=== PATIENT | male | born 1980 | race Two or more races ===

== ENCOUNTER 2024-11-05 16:46 | Inpatient (IN) | payer MEDICAID, OTHER ==
[~2024-11-05] VITALS: Ht 172.7 cm; Wt 102.3 kg
[2024-11-05] MEDS: KETOROLAC TROMETH 60MG/2ML VIAL IM ONE (17:00)
--- NOTE | 2024-11-05 17:04 | ED.PDOC ---
Psychiatric HPI Comments This is a 44 year old male history of depression BIBA presenting to the ED with chief complaint of chest pain. Patient reports that he has been experiencing intermittent sharp retrosternal and left sided chest pain with associated dizziness, fatigue, and left arm tingling for the past 3 weeks. Patient relays that he has history of depression and is currently on Zoloft. Patient states his symptoms have relieved slightly since onset. Patient denies any SOB, headache, fever, chills, or SI. Chief Complaint: Anxiety Time Seen by MD: 17:02 Primary Care Provider: denies Reviewed Notes: Nurses Notes, Machining Technician Notes, Medications, Allergies Information Source: Patient, Emergency Med Personnel Mode of Arrival: Ambulatory Severity: Able to Care for Self, Able to Control Self Severity of Pain: Moderate Severity of Mental Status: Moderate Severity of Symptoms: Moderate Timing: Weeks Duration: Intermittent Presents with: Anxiety Past Medical History PAST MEDICAL HISTORY: Anxiety, Depression Surgical History: Hernia Repair Family History Family History: Reviewed,noncontributory to illness, No family hx of HTN Social History Smoker: Quit Less Than 1 Year, Cigarettes Alcohol: Denies ETOH Use Drugs: Marijuana Lives In: Home Constitutional: reports: fatigue; denies: chills, diaphoresis, fever, malaise, sweats, weakness, others EENTM: denies: blurred vision, double vision, ear bleeding, ear discharge, ear drainage, ear pain, ear ringing, eye pain, eye redness, hearing loss, mouth pain, mouth swelling, nasal discharge, nose bleeding, nose congestion, nose pain, photophobia, tearing, throat pain, throat swelling, voice changes, others Respiratory: denies: cough, hemoptysis, orthopnea, SOB at rest, shortness of breath, SOB with excertion, stridor, wheezing, others Cardiovascular: reports: chest pain, left arm pain; denies: dizzy spells, diaphoresis, Dyspnea on exertion, edema, irregular heart beat, lightheadedness, palpitations, PND, syncope, others Gastrointestinal: denies: abdomen distended, abdominal pain, blood streaked bowels, constipated, diarrhea, dysphagia, difficulty swallowing, hematemesis, melena, nausea, poor appetite, poor fluid intake, rectal bleeding, rectal pain, vomiting, others Genitourinary: denies: burning, dysuria, flank pain, frequency, hematuria, incontinence, penile discharge, penile sore, pain, testicle pain, testicle swelling, urgency, others Neurological: reports: dizziness; denies: fainting, headache, left sided numbness, left sided weakness, numbness, paresthesia, pre-existing deficit, right sided numbness, right sided weakness, seizure, speech problems, tingling, tremors, weakness, others Musculoskeletal: denies: back pain, gout, joint pain, joint swelling, muscle pain, muscle stiffness, neck pain, others Integumetry: denies: bruises, change in color, change in hair/nails, dryness, laceration, lesions, lumps, rash, wounds, others Allergic/Immunocompromised: denies: Difficulty Healing, Frequent Infections, Hives, Itching, others Hematologic/Lymphatic: denies: anemia, blood clots, easy bleeding, easy bruising, swollen glands, others Endocrine: denies: excessive hunger, excessive sweating, excessive thirst, excessive urination, flushing, intolerance to cold, intolerance to heat, unexplained weight gain, unexplained weight loss, others Psychiatric: reports: anxiety; denies: bipolar disorder, depression, hopeless, panic disorder, schizophrenia, sleepless, suicidal, others All Other Systems: Reviewed and Negative Physical Exam General Appearance: Mild Distress HEENT: Other (Pupils and face symmetric. Moist mucous membranes.) Neck: Full Range of Motion, Normal Inspection Respiratory: Chest Non-Tender, Lungs Clear, No Accessory Muscle Use, No Respiratory Distress, Normal Breath Sounds Cardiovascular: No Edema, No JVD, Tachycardia Breast Exam: Deferred Gastrointestinal: Non Tender, Soft Genitalia: Deferred Pelvic: Deferred Rectal: Deferred Extremities: Normal inspection, Normal range of motion, Non-tender, No pedal edema Neurologic: Alert (Oriented x4), Other (Anxious. Ambulatory.) Cerebellar Function: NOT DONE Reflexes: NOT DONE Skin: Dry, Normal Color, Warm Lymphatic: NOT DONE EKG EKG : Comments Sinus tach, rate 109, normal intervals, borderline left axis deviation, normal QRS, nonspecific T change. Was a procedure done? Was a procedure done?: No Psych Differential Dx Psych. Differential Dx: Anxiety OD Differential Dx: Alcohol Abuse, Substance Abuse Other Differentail Dx ACS, DC, arrhythmia, PE, among others X-Ray, Labs, Meds, VS Vital Signs Date Time Temp Pulse Resp B/P (MAP) Pulse Ox O2 Delivery O2 Flow Rate FiO2 11/05/24 19:17 79 18 98 Room Air 11/05/24 19:17 79 18 117/69 (85) 98 11/05/24 16:50 109 11/05/24 16:46 98.6 120 20 147/94 98 98.6 Lab Test 11/05/24 19:18 11/05/24 17:45 Range/Units Troponin I High Sensitivity Pending 64 *H </=54 ng/L White Blood Count 10.6 4.4-10.8 10^3/uL Red Blood Count 4.79 4.5-5.90 10^6/uL Hemoglobin 15.5 13.5-17.5 g/dL Hematocrit 43.2 41.0-53.0 % Mean Corpuscular Volume 90.2 80.0-100.0 fL Mean Corpuscular Hemoglobin 32.5 H 28.0-32.0 pg Mean Corpuscular Hemoglobin Concent 36.0 32.0-36.0 g/dL Red Cell Distribution Width 13.1 11.8-14.3 % Platelet Count 222 140-450 10^3/uL Mean Platelet Volume 6.8 L 6.9-10.8 fL Neutrophils (%) (Auto) 85.1 H 37.0-80.0 % Lymphocytes (%) (Auto) 8.8 L 10.0-50.0 % Monocytes (%) (Auto) 5.5 0.0-12.0 % Eosinophils (%) (Auto) 0.2 0.0-7.0 % Basophils (%) (Auto) 0.4 0.0-2.0 % Neutrophils # (Auto) 9.0 H 1.6-8.6 10 ^3/uL Lymphocytes # (Auto) 0.9 0.4-5.4 10 ^3/uL Monocytes # (Auto) 0.6 0-1.3 10 ^3/uL Eosinophils # (Auto) 0 0-0.8 10 ^3/uL Basophils # (Auto) 0 0-0.2 10 ^3/uL Nucleated Red Blood Cells 0.0 % D-Dimer, Quantitative < 0.19 0.0-0.49 mg/L FEU Sodium Level 140 136-145 mmol/L Potassium Level 4.0 3.5-5.1 mmol/L Chloride Level 103 98-107 mmol/L Carbon Dioxide Level 28 20-31 mmol/L Anion Gap 9 5-15 Blood Urea Nitrogen 19 9-23 mg/dL Creatinine 1.22 0.700-1.30 mg/dL Glomerular Filtration Rate Calc 75 >90 mL/min BUN/Creatinine Ratio 15.6 10.0-20.0 Serum Glucose 79 74-106 mg/dL Calcium Level 9.8 8.7-10.4 mg/dL B-Type Natriuretic Peptide 17.71 0-100 pg/mL Current Medications Medications (Trade) Dose Ordered Sig/Rashawn Route Start Time Stop Time Status Last Admin Ketorolac Tromethamine (Toradol Injection) 60 mg ONCE ONCE IM 11/05/24 17:00 11/05/24 17:02 DC 11/05/24 17:00 Lorazepam (Ativan Tablet) 1 mg ONCE ONCE PO 11/05/24 17:00 11/05/24 17:02 DC 11/05/24 18:46 PROCEDURE(s): CXRP - CHEST PORTABLE REASON: cp ORDER NUMBER(s): [id number], ACCESSION NUMBER(s): [id number] AP portable chest CLINICAL INDICATION: cp FINDINGS: Heart size is normal. No infiltrates or effusions. No bony thoracic abnormalities. IMPRESSION: 1. Normal chest x-ray. X-Ray, Labs, Meds, VS Comment 44-year-old male with a history of depression complaining of chest pain Vitals remarkable for initial heart rate 120, BP 147/94 Exam remarkable for anxiety and tachycardia Rhythm strip independently interpreted by me: Sinus tach, rate 109, no ectopy. Chest x-ray normal CBC, basic metabolic panel, BNP and D-dimer unremarkable. First troponin 64 Patient treated with the following in the ED: Toradol 60 mg IM, Ativan 1 mg p.o., aspirin 325 mg p.o., nitro bid 1/2 inch to chest wall On re-evaluation, pain has improved, patient is no longer tachycardic. Vitals were stable. Plan is to admit the patient for ongoing serial troponins and Cardiology evaluation. Time of 1ST Reevaluation: 18:01 Reevaluation 1ST: Improved Patient Education/Counseling: Diagnosis, Treatment Family Education/Counseling: No Family Present Departure 1 Departure Time of Disposition: 19:49 Impression: Primary Impression: Non-STEMI (non-ST elevated myocardial infarction) Disposition: 09 ADMITTED INPATIENT Admit to: Tele Condition: Guarded Critical Care Note Critical Care Time?: No Stability Stability form required: No Heart Score Heart Score: Heart Score Response (Comments) Value History Moderate Suspicious 1 EKG Repolarization Disturb 1 Age 45-64 1 Risk Factors 1 or 2 risk factors 1 Troponin 1-2 x's Normal limit 1 Total 5 I personally scribed for GT WILKES MD ([email or web address]) on 11/05/24 at 17:04. Electronically submitted by Ricki Rodriguez ([email or web address]). I personally scribed for GT WILKES MD ([email or web address]) on 11/05/24 at 18:08. Electronically submitted by Ricki Rodriguez ([email or web address]). GT WILKES MD Nov 05, 2024 17:04
--- NOTE | 2024-11-05 17:31 | DVH ---
AP portable chest CLINICAL INDICATION: cp FINDINGS: Heart size is normal. No infiltrates or effusions. No bony thoracic abnormalities. IMPRESSION: 1. Normal chest x-ray.
[2024-11-05 18:15] LABS: Chloride 103 mmol/L (98-107); Potassium 4.0 mmol/L (3.5-5.1); Sodium 140 mmol/L (136-145)
[2024-11-05 18:16] LABS: Anion Gap 9 (5-15); Calcium 9.8 mg/dL (8.7-10.4); Carbon Dioxide 28 mmol/L (20-31); Hematocrit 43.2 % (41.0-53.0); Hemoglobin 15.5 g/dL (13.5-17.5); Mean Corpuscular Hemoglobin 32.5 pg (28.0-32.0); Mean Corpuscular Volume 90.2 fL (80.0-100.0); Nucleated Red Blood Cells % 0.0 %
[2024-11-05 18:21] LABS: BUN/Creatinine Ratio 15.6 (10.0-20.0); Blood Urea Nitrogen 19 mg/dL (9-23); Glucose 79 mg/dL (74-106)
[2024-11-05] MEDS: LORazepam 0.5 MG TAB PO ONE (18:46)
[2024-11-05] MEDS ORDERED: NITROGLYCERIN 0.4 MG SL TAB SL PRN (20:00)
--- NOTE | 2024-11-05 21:26 | DVHHP2 ---
History of Present Illness Reason for Visit: Chest pain History of Present Illness 44-year-old male presents for evaluation of chest pain. Patient reports a three day history of intermittent substernal sharp chest pain that radiates to his left arm with associated dizziness. Currently denies any pain. No shortness a breath. Past Medical History Anxiety and depression Past Surgical History Hernia repair Family History Noncontributory Smoke: Quit ALCOHOL: none Drugs: Marijuana Review of Systems Review of Systems Review of systems are currently negative otherwise addressed in HPI. Allergies: Coded Allergies: NO KNOWN ALLERGIES (Unverified , 03/06/12) Medications Current Medications Medications Dose Ordered Sig/Rashawn Route Start Time Stop Time Status Last Admin Dose Admin Nitroglycerin 0.4 mg Q5MINP PRN SL 11/05/24 20:00 Morphine Sulfate 2 mg Q30M PRN IV 11/05/24 20:00 Exam Vital Signs Vital Signs Date Time Temp Pulse Resp B/P (MAP) Pulse Ox O2 Delivery O2 Flow Rate FiO2 11/05/24 19:17 79 18 98 Room Air 11/05/24 19:17 117/69 (85) 11/05/24 16:46 98.6 98.6 Exam Gen: 44-year-old male Skin: Warm, dry, normal color and texture, no rash. HEENT: Normocephalic atraumatic, mucous membranes moist and pink. Neck: Cervical and supraclavicular nodes normal without enlargement, trachea is midline, thyroid gland is normal without masses. Pulmonary: Clear to auscultation and percussion bilaterally. Cardiac: Regular rate and rhythm. No murmur Abdomen: Soft, nontender, nondistended, bowel sounds present all 4 quadrants, no guarding, no rigidity, no organomegaly. Extremities: No cyanosis, clubbing, no edema Neuro: Cranial nerves II through XII grossly intact, normal affect and speech, no focal motor deficits. Labs/Xrays AGE / SEX: 44 / M ADM STATUS: REG ER SERVICE 1700 ORDERING PHYSICIAN: GT WILKES MD PROCEDURE(s): CXRP - CHEST PORTABLE REASON: cp ORDER NUMBER(s): [id number], ACCESSION NUMBER(s): [id number] AP portable chest CLINICAL INDICATION: cp FINDINGS: Heart size is normal. No infiltrates or effusions. No bony thoracic abnormalities. IMPRESSION: 1. Normal chest x-ray. ATED BY: XAVIER PAIGE MD Labs Test 11/05/24 20:58 11/05/24 17:45 Range/Units White Blood Count 10.6 4.4-10.8 10^3/uL Red Blood Count 4.79 4.5-5.90 10^6/uL Hemoglobin 15.5 13.5-17.5 g/dL Hematocrit 43.2 41.0-53.0 % Mean Corpuscular Volume 90.2 80.0-100.0 fL Mean Corpuscular Hemoglobin 32.5 H 28.0-32.0 pg Mean Corpuscular Hemoglobin Concent 36.0 32.0-36.0 g/dL Red Cell Distribution Width 13.1 11.8-14.3 % Platelet Count 222 140-450 10^3/uL Mean Platelet Volume 6.8 L 6.9-10.8 fL Neutrophils (%) (Auto) 85.1 H 37.0-80.0 % Lymphocytes (%) (Auto) 8.8 L 10.0-50.0 % Monocytes (%) (Auto) 5.5 0.0-12.0 % Eosinophils (%) (Auto) 0.2 0.0-7.0 % Basophils (%) (Auto) 0.4 0.0-2.0 % Neutrophils # (Auto) 9.0 H 1.6-8.6 10 ^3/uL Lymphocytes # (Auto) 0.9 0.4-5.4 10 ^3/uL Monocytes # (Auto) 0.6 0-1.3 10 ^3/uL Eosinophils # (Auto) 0 0-0.8 10 ^3/uL Basophils # (Auto) 0 0-0.2 10 ^3/uL Nucleated Red Blood Cells 0.0 % D-Dimer, Quantitative < 0.19 0.0-0.49 mg/L FEU Sodium Level 140 136-145 mmol/L Potassium Level 4.0 3.5-5.1 mmol/L Chloride Level 103 98-107 mmol/L Carbon Dioxide Level 28 20-31 mmol/L Anion Gap 9 5-15 Blood Urea Nitrogen 19 9-23 mg/dL Creatinine 1.22 0.700-1.30 mg/dL Glomerular Filtration Rate Calc 75 >90 mL/min BUN/Creatinine Ratio 15.6 10.0-20.0 Serum Glucose 79 74-106 mg/dL Calcium Level 9.8 8.7-10.4 mg/dL B-Type Natriuretic Peptide 17.71 0-100 pg/mL SEPSIS Sepsis Screen Date sepsis recognized/suspect: Nov 05, 2024 Time Sepsis recognized/suspect: 1645 Recent Procedure: No On Antibiotic Therapy: No Respiratory Rate >20: No Heart Rate >90: Yes Temp<36 C (96.8 F) or >38.3 C: No SBP <90 or MAP <65 mmHG: No New Acute Mental Status Change: No Is the patient on CPAP, BIPAP,: No Physician Orders Electrocardigram (11/05/24 16:53) Chest Portable (11/05/24 17:00) Urinalysis (11/05/24 17:00) Troponin-I Hs (11/05/24 20:00) Drug Screen (11/05/24 19:49) Admit (11/05/24 19:53) Nitroglycerin Sublingual (Ntrostat Subli (11/05/24 20:00) Morphine Sulfate Injection (11/05/24 20:00) Stat Ekg For Chest Pain (11/05/24 19:53) Notify Md Of Changes From Base (11/05/24 19:53) Lean Manufacturing Engineer For 24 Hours (11/05/24 19:53) Emergency Dysrhythmia Protocol (11/05/24 19:53) Rhythm Strips Once Every Shift (11/05/24 19:53) Oxygen By Nasal Cannula (11/05/24 19:53) Vital Signs Date Time Temp Pulse Resp B/P (MAP) Pulse Ox O2 Delivery O2 Flow Rate FiO2 11/05/24 19:17 79 18 98 Room Air 11/05/24 19:17 79 18 117/69 (85) 98 11/05/24 16:50 109 11/05/24 16:46 98.6 120 20 147/94 98 98.6 Laboratory Tests Test 11/05/24 17:45 White Blood Count 10.6 10^3/uL (4.4-10.8) Medications Medications Dose Ordered Sig/Rashawn Route Start Time Stop Time Status Last Admin Dose Admin Ketorolac Tromethamine 60 mg ONCE ONCE IM 11/05/24 17:00 11/05/24 17:02 DC 11/05/24 17:00 60 MG Lorazepam 1 mg ONCE ONCE PO 11/05/24 17:00 11/05/24 17:02 DC 11/05/24 18:46 1 MG Assessment/Plan Assessment/Plan Assessment Chest pain rule out ACS Elevated troponin Plan Admit the patient to telemetry to the hospitalist ACS protocol Cardiology consultation Continue treatment per orders. Plan discussed with: Patient My Orders Orders - ANGEL NAGEL Procedure Category Date Status Time Admit ADMIT 11/05/24 Transmitted 19:53 Nitroglycerin PHA 11/05/24 In Process Sublingual (Ntrostat 20:00 Morphine Sulfate PHA 11/05/24 In Process Injection 20:00 Stat Ekg For Chest [facility] 11/05/24 In Process Pain 19:53 Notify Md Of Changes [facility] 11/05/24 In Process From Base 19:53 Lean Manufacturing Engineer For [facility] 11/05/24 In Process 24 Hours 19:53 Emergency Dysrhythmia [facility] 11/05/24 In Process Protocol 19:53 Rhythm Strips Once [facility] 11/05/24 In Process Every Shift 19:53 Oxygen By Nasal RT 11/05/24 Transmitted Cannula 19:53 Date of Service: Nov 05, 2024 Billing Provider: ANGEL NAGEL Common Visit Codes: [id number] INP/OBS CARE (HIGH) ANGEL NAGEL Nov 05, 2024 21:26
[2024-11-05] MEDS ORDERED: ONDANSETRON HCL 4 MG/2 ML VIAL IV PRN (21:30)
[2024-11-05 21:42] LABS: Triglycerides 311 mg/dL (< 150)
[2024-11-05 21:44] LABS: Cholesterol 161 mg/dL (< 200)
[2024-11-05 21:45] LABS: HDL Cholesterol 37 mg/dL (40-59)
[2024-11-06] VITALS (7 sets, daily range): BP systolic 111–128; BP diastolic 69–86; PULSE 53–88; RESP 16–18; TEMP 97.8–99; O2SAT 94–98
[2024-11-06] MEDS: MORPHINE SULFATE INJ 2 MG/ml SYRG IV PRN (01:54)
[2024-11-06] MEDS: NITROGLYCERIN 2% OINT 1GM PKG TD ONE (01:54)
[2024-11-06] MEDS: ATORVASTATIN 20 MG TAB PO SCH ×2 (01:55→23:31)
[2024-11-06] MEDS: ACETAMINOPHEN 325 MG TAB PO PRN (04:16)
[2024-11-06 07:23] LABS: Potassium 3.5 mmol/L (3.5-5.1); Sodium 143 mmol/L (136-145)
[2024-11-06 07:24] LABS: Anion Gap 8 (5-15); Carbon Dioxide 26 mmol/L (20-31)
[2024-11-06 07:25] LABS: Calcium 9.0 mg/dL (8.7-10.4)
[2024-11-06 07:29] LABS: BUN/Creatinine Ratio 17.7 (10.0-20.0); Blood Urea Nitrogen 17 mg/dL (9-23)
[2024-11-06 07:30] LABS: Chloride 109 mmol/L (98-107); Glucose 109 mg/dL (74-106)
--- NOTE | 2024-11-06 09:41 | DVHINCON2 ---
Date Seen: Nov 06, 2024 Referring Physician SO Jordan Reason for Consultation Chest pain History of Present Illness This is a 44-year-old man who presented to the emergency room with a chief complaint of chest pain for over three weeks. The patient reports ongoing intermittent chest pain described as left-sided, sharp/stabbing in nature, triggered by inspiration, and associated with headaches for the past year and progressively worse for approximally three weeks. States he was seen by medical staff at a [facility] shelter >3.5 weeks ago given similar aforementioned symptoms and been diagnosed with vertigo. He was released from shelter yesterday and developing symptoms again. He underwent a 12 lead electrocardiogram revealing a sinus tachycardia rhythm without evidence of acute ST-T segment changes. Troponin levels peaked at 86 ng/L. Significant medical history includes dyslipidemia without current medication, history of left lower extremity cellulitis, anxiety, depression, insomnia, and cannabinoid use. Past Medical History Past medical history reviewed. No other significant than mentioned above. Past Surgical History Inguinal hernia repair Family History Family history reviewed. Denies for cardiovascular disease. Social History Admits to cannabinoid use, last used yesterday. Denies the use of tobacco or alcohol. Allergies: Coded Allergies: NO KNOWN ALLERGIES (Unverified , 03/06/12) Home Meds Home medications reviewed. Current Medications Current Medications Medications (Trade) Dose Ordered Sig/Rashawn Route PRN Reason Start Time Stop Time Status Last Admin Nitroglycerin (Ntrostat Sublingual) 0.4 mg Q5MINP PRN SL FOR CHEST PAIN 11/05/24 20:00 Morphine Sulfate 2 mg Q30M PRN IV FOR CHEST PAIN 11/05/24 20:00 11/06/24 01:54 Aspirin 162 mg DAILY PO 11/06/24 10:00 Atorvastatin Calcium (Lipitor) 10 mg HS PO 11/05/24 22:00 Ondansetron HCl (Zofran) 4 mg Q4HP PRN IV NAUSEA / VOMITING 11/05/24 21:30 Acetaminophen (Tylenol Tablet) 650 mg Q6HP PRN PO PAIN SCALE 1-3 OR TEMP>100.4 11/05/24 21:30 11/06/24 04:16 Review of Systems Constitutional: No symptom reported Ears, Nose, & Throat: No symptom reported Eyes: No symptom reported Neurological: No symptoms reported Pulmonary/Respiratory: No symptom reported Cardiovascular: No symptom reported Gastrointestinal: No symptom reported Genitourinary: No symptom reported Musculoskeletal: Noncardiac chest pain Skin: No symptom reported Psychiatric: No symptom reported Endocrine: No symptom reported Hemotologic/Lymphatic: No symptom reported Vital Signs Vital Signs Date Time Temp Pulse Resp B/P (MAP) Pulse Ox O2 Delivery O2 Flow Rate FiO2 11/06/24 07:15 98.4 60 18 112/64 (80) 96 98.4 11/06/24 07:15 Room Air* 0 21 Physical Exam General Appearance: Cooperative. Well developed. Well nourished. In no acute distress Head Exam: Normal inspection Neck Exam: Normal inspection. Non-tender. Normal alignment Pulmonary/Respiratory: Chest non-tender. Clear bilateral breath sounds Cardiovascular/Chest: Regular rate and rhythm. S1, S2. NSR. No murmurs. No JVD. Peripheral Pulses: 2+ Radial (R). 2+ Radial (L). 2+ Pedal (R). 2+ Pedal (L) Abdominal Exam: Normal bowel sounds. Soft. Nontender. No hepatospenomegaly. No masses Ankle Exam: Negative ankle edema Lower extremities: Negative lower extremity edema Neuro/Mental Status: A&O x4. Coherent Thoughts/Psych: Normal thought pattern. Anxious Appearance: In no acute distress Skin Exam: Normal inspection. Normal color. Warm. Dry Labs/Diagnostic Data Labs Test 11/06/24 06:38 11/05/24 20:58 11/05/24 19:18 11/05/24 17:45 Range/Units Sodium Level 143 136-145 mmol/L Potassium Level 3.5 3.5-5.1 mmol/L Chloride Level 109 H 98-107 mmol/L Carbon Dioxide Level 26 20-31 mmol/L Anion Gap 8 5-15 Blood Urea Nitrogen 17 9-23 mg/dL Creatinine 0.96 0.700-1.30 mg/dL Glomerular Filtration Rate Calc 99 >90 mL/min BUN/Creatinine Ratio 17.7 10.0-20.0 Serum Glucose 109 H 74-106 mg/dL Calcium Level 9.0 8.7-10.4 mg/dL Troponin I High Sensitivity 86 *H </=54 ng/L Triglycerides Level 311 H < 150 mg/dL Cholesterol Level 161 < 200 mg/dL LDL Cholesterol 104 H < 100 mg/dL HDL Cholesterol 37 L 40-59 mg/dL Thyroid Stimulating Hormone (TSH) 0.78 0.55-4.78 uIU/mL White Blood Count 10.6 4.4-10.8 10^3/uL Red Blood Count 4.79 4.5-5.90 10^6/uL Hemoglobin 15.5 13.5-17.5 g/dL Hematocrit 43.2 41.0-53.0 % Mean Corpuscular Volume 90.2 80.0-100.0 fL Mean Corpuscular Hemoglobin 32.5 H 28.0-32.0 pg Mean Corpuscular Hemoglobin Concent 36.0 32.0-36.0 g/dL Red Cell Distribution Width 13.1 11.8-14.3 % Platelet Count 222 140-450 10^3/uL Mean Platelet Volume 6.8 L 6.9-10.8 fL Neutrophils (%) (Auto) 85.1 H 37.0-80.0 % Lymphocytes (%) (Auto) 8.8 L 10.0-50.0 % Monocytes (%) (Auto) 5.5 0.0-12.0 % Eosinophils (%) (Auto) 0.2 0.0-7.0 % Basophils (%) (Auto) 0.4 0.0-2.0 % Neutrophils # (Auto) 9.0 H 1.6-8.6 10 ^3/uL Lymphocytes # (Auto) 0.9 0.4-5.4 10 ^3/uL Monocytes # (Auto) 0.6 0-1.3 10 ^3/uL Eosinophils # (Auto) 0 0-0.8 10 ^3/uL Basophils # (Auto) 0 0-0.2 10 ^3/uL Nucleated Red Blood Cells 0.0 % D-Dimer, Quantitative < 0.19 0.0-0.49 mg/L FEU B-Type Natriuretic Peptide 17.71 0-100 pg/mL Assessment Non-cardiac chest pain, pleuritic in nature Rule out structural heart disease NSTEMI, likely type II Dyslipidemia Anxiety Depression Cannabinoid use Plan/Recommendation (Dr. Salvador) The patient presents with noncardiac chest pain likely pleuritic in nature in combination to anxiety. We will continue further cardiac evaluation with a transthoracic echocardiogram to rule out structural heart disease. In the meantime, obtain an UDS and initiate high-intensity statin. He was counseled on diet, exercise, and weight loss for lipid management. In the setting of an unremarkable echocardiogram, there is no further cardiac workup indicated at this time. Kindly call if in need to re-consult. Thank you for allowing us to participate in this patient's care. Please call if you have any questions or concerns. This medical document was created using an electronic medical record system with voice recognition software and computerized dictation system. Although this document has been carefully reviewed, there might still be some phonetic and typographical errors. Occasional wrong-word or ``sound-alike substitutions may have occurred due to the inherent limitations of voice recognition software. These areas are purely typographical due to imperfections of the software programs and do not reflect any compromise in the patient's medical care. Please read the chart carefully and recognize, using context, where these substitutions have occurred. Plan discussed with: Patient, Other NYHA Physical activity limitations: NA Date of Service: Nov 06, 2024 Billing Provider: EMMA VALDEZ Cardiology Common Codes: [id number] INP/OBS CARE (High) EMMA VALDEZ Nov 06, 2024 09:41
[2024-11-06 13:42] LABS: Urine Protein, UAD Negative (Negative)
--- NOTE | 2024-11-06 14:43 | DVHPN2 ---
Subjective Patient continues to have sharp chest pain with deep inspiration Reviewed: Care Plan, H&P, Labs, Medications Changes from previous H/P or p: No Changes General: Per HPI Objective Vitals Vital Signs Date Time Temp Pulse Resp B/P (MAP) Pulse Ox O2 Delivery O2 Flow Rate FiO2 11/06/24 12:30 97.9 53 16 123/75 (91) 94 97.9 11/06/24 12:30 Room Air* 0 21 General Appearance: Alert, Oriented X3, Cooperative, No acute distress HEENT: Atraumatic, PERRLA Lungs: Clear to auscultation, Normal air movement Cardiovascular: Normal S1, Normal S2 Abdomen: Normal bowel sounds, Soft, No tenderness, No hepatospenomegaly, No masses Musculoskeletal: Normal sensory function, Normal motor function Extremities: No clubbing, No cyanosis Neuro: Normal gait, Normal speech Skin: Dry, Intact Psych/Mental Status: Mental status NL, Mood NL Medications Current Medications Medications Dose Ordered Sig/Rashawn Route Start Time Stop Time Status Last Admin Dose Admin Nitroglycerin 0.4 mg Q5MINP PRN SL 11/05/24 20:00 Morphine Sulfate 2 mg Q30M PRN IV 11/05/24 20:00 11/06/24 01:54 2 MG Aspirin 162 mg DAILY PO 11/06/24 10:00 11/06/24 10:33 162 MG Ondansetron HCl 4 mg Q4HP PRN IV 11/05/24 21:30 Acetaminophen 650 mg Q6HP PRN PO 11/05/24 21:30 11/06/24 04:16 650 MG Atorvastatin Calcium 40 mg HS PO 11/06/24 22:00 Laboratory Results Laboratory Tests 11/05/24 17:45 11/06/24 06:38 Chemistry Test 11/05/24 17:45 11/06/24 06:38 Calcium Level 9.8 mg/dL (8.7-10.4) 9.0 mg/dL (8.7-10.4) Magnesium Level 1.9 mg/dL (1.6-2.6) Coagulation Test 11/05/24 17:45 D-Dimer, Quantitative < 0.19 mg/L FEU (0.0-0.49) Lipid panel Test 11/05/24 19:18 Cholesterol Level 161 mg/dL (< 200) HDL Cholesterol 37 mg/dL (40-59) L Triglycerides Level 311 mg/dL (< 150) H Cardiac Markers Test 11/05/24 17:45 B-Type Natriuretic Peptide 17.71 pg/mL (0-100) HgA1c, TSH Test 11/05/24 19:18 11/06/24 06:38 Thyroid Stimulating Hormone (TSH) 0.78 uIU/mL (0.55-4.78) Hemoglobin A1c 5.4 % A1C (<5.7) Urinalysis Test 11/06/24 13:28 Urine Color Colorless (Yellow) Urine Clarity Clear (Clear) Urine pH 7.5 (5.0-9.0) Urine Specific [place] 1.009 (1.001-1.035) Urine Protein Negative (Negative) Urine Ketones Negative (Negative) Urine Blood Negative /uL (Negative) Urine Nitrite Negative (Negative) Urine Bilirubin Negative (Negative) Urine Urobilinogen Normal mg/dL (Negative) Urine Leukocyte Esterase Negative /uL (Negative) Urine RBC 1 /hpf (0 - 3) Urine Microscopic WBC < 1 /HPF (0-3) Urine Squamous Epithelial Cells None seen /hpf (<5) Urine Bacteria None seen /hpf (None Seen) Urine Glucose Normal mg/dL (Normal) Labs and/or images reviewed: Labs reviewed by me, Image(s) reviewed by me Assessment/Plan Assessment/Plan Impression: -elevated troponin, rule out ACS -nicotine dependence -anxiety Plan: -echocardiogram pending -trial of Toradol -kidney ultrasound -reassess for discharge in a.m. after receiving echo results. Discussed this with Cardiology. Total time spent with patient discussing and formulating plan of care: 35 minutes. This medical document was created using an electronic medical record system with [employer] dictation system. Although this document has been carefully reviewed, there may still be some phonetic and typographical errors. These areas are purely typographical due to imperfections of the software programs, and do not reflect any compromise in the patient's medical care. Plan discussed with: Patient, Other (RN) Date of Service: Nov 06, 2024 Billing Provider: ROHAN MELARA NP Common Visit Codes: [id number] INP/OBS CARE(HIGH) ROHAN MELARA NP Nov 06, 2024 14:43
[2024-11-06 14:47] LABS: Amphetamine Screen, Urine Neg (NEGATIVE); Barbiturate Scree,Urine Neg (NEGATIVE); Benzodiazephine Screen, Urine Neg (NEGATIVE); Cannabinoid Screen, Urine Neg (NEGATIVE); Cocaine Screen, Urine Neg (NEGATIVE); Opiate Scree,Urine Neg (NEGATIVE); Phencyclidine Screen, Urine Neg (NEGATIVE)
[2024-11-06] MEDS: KETOROLAC TROMETH 30 MG/ML 1ML VIAL IV ONE (15:10)
--- NOTE | 2024-11-06 15:29 | ECG ---
[facility] Test Date: 2024-11-05 Test Time: 16:50:29 Pat Name: MEGAN MENCHACA Department: Room: [address] [place] [address] A Gender: M [place] Machine Operator: GINNA : 1980 Requested By: GT SARAVIA Order Number: [id number] Reading MD: Torrey Kirkland Measurements Intervals [place] Rate: 109 P: 48 MT: 155 QRS: 5 QRSD: 77 T: 23 QT: 324 QTc: 437 Interpretive Statements Sinus tachycardia Artifact in lead(s) III,aVR,V3 and baseline wander in lead(s) V3 Electronically Signed On 11-06-2024 15:41:33 PDT by Torrey Kirkland Please click the below link to view image of tracing.
--- NOTE | 2024-11-06 15:40 | DVH ---
INDICATION: rule out obstruction, stone. Bilateral Flank pain TECHNIQUE: Multiple real-time sonographic images of the kidneys and bladder were obtained. COMPARISON: None FINDINGS: The right kidney measures 10 cm in length, which is normal in size. There is normal echogen icity of the right kidney. No hydronephrosis. Subcentimeter nonobstructing right midpole renal calcul us. The left kidney measures 10 cm in length, which is normal in size. There is normal echogenicity of th e left kidney. No hydronephrosis. No large intraluminal masses are seen in the bladder. Prior to voiding the bladder volume measures vo lume 451 cc. IMPRESSION: Subcentimeter nonobstructing right midpole renal calculus. No hydronephrosis.
--- NOTE | 2024-11-06 22:58 | DVHINCON2 ---
Date Seen: Nov 06, 2024 Referring Physician SO Jordan Reason for Consultation Chest pain History of Present Illness This is a 44-year-old male with a PMH of dyslipidemia without current medication, history of left lower extremity cellulitis, anxiety, depression, insomnia, and cannabinoid use who presented to the emergency room with a chief complaint of chest pain for over three weeks. The patient reports ongoing intermittent chest pain described as left-sided, sharp/stabbing in nature, triggered by inspiration, and associated with headaches for the past year and progressively worse for approximally three weeks. States he was seen by medical staff at [facility] >3.5 weeks ago given similar aforementioned symptoms and been diagnosed with vertigo. He was released from care home yesterday and developing symptoms again. He underwent a 12 lead electrocardiogram revealing a sinus tachycardia rhythm without evidence of acute ST-T segment changes. Troponin levels peaked at 86 ng/L. Patient was admitted to the hospital. I am asked to consult on this patient. Past Medical History Past medical history reviewed. No other significant than mentioned above. Past Surgical History Inguinal hernia repair Allergies: Coded Allergies: NO KNOWN ALLERGIES (Unverified , 03/06/12) Current Medications Current Medications Medications (Trade) Dose Ordered Sig/Rashawn Route PRN Reason Start Time Stop Time Status Last Admin Aspirin 162 mg DAILY PO 11/06/24 10:00 11/06/24 10:33 Atorvastatin Calcium (Lipitor) 40 mg HS PO 11/06/24 22:00 Review of Systems Constitutional: No symptom reported Ears, Nose, & Throat: No symptom reported Eyes: No symptom reported Neurological: No symptoms reported Pulmonary/Respiratory: No symptom reported Cardiovascular: No symptom reported Gastrointestinal: No symptom reported Genitourinary: No symptom reported Musculoskeletal: Noncardiac chest pain Skin: No symptom reported Psychiatric: No symptom reported Endocrine: No symptom reported Hemotologic/Lymphatic: No symptom reported Vital Signs Vital Signs Date Time Temp Pulse Resp B/P (MAP) Pulse Ox O2 Delivery O2 Flow Rate FiO2 11/06/24 21:00 97.8 62 17 128/86 (100) 97 97.8 11/06/24 18:26 Room Air* 0 21 Physical Exam GENERAL: Alert and oriented x 3. No acute distress. EYES: PERRL, EOMI. Anicteric. HENT: Moist mucous membranes. LUNGS: Clear to auscultation bilaterally. CARDIOVASCULAR: Regular rate and rhythm. ABDOMEN: Soft, non-tender and non-distended. EXTREMITIES: No edema. NEUROLOGIC: No focal neurological deficits. SKIN: Warm, dry. Labs/Diagnostic Data Labs Test 11/06/24 13:28 11/06/24 06:38 11/05/24 19:18 11/05/24 17:45 Range/Units Urine Color Colorless Yellow Urine Clarity Clear Clear Urine pH 7.5 5.0-9.0 Urine Specific [place] 1.009 1.001-1.035 Urine Protein Negative Negative Urine Ketones Negative Negative Urine Blood Negative Negative /uL Urine Nitrite Negative Negative Urine Bilirubin Negative Negative Urine Urobilinogen Normal Negative mg/dL Urine Leukocyte Esterase Negative Negative /uL Urine RBC 1 0 - 3 /hpf Urine Microscopic WBC < 1 0-3 /HPF Urine Squamous Epithelial Cells None seen <5 /hpf Urine Bacteria None seen None Seen /hpf Urine Glucose Normal Normal mg/dL Urine Opiates Screen Neg NEGATIVE Urine Fentanyl Screen Neg NEGATIVE Urine Barbiturates Screen Neg NEGATIVE Urine Phencyclidine Screen Neg NEGATIVE Urine Amphetamines Screen Neg NEGATIVE Urine Benzodiazepines Screen Neg NEGATIVE Urine Cocaine Screen Neg NEGATIVE Urine Cannabinoids Screen Neg NEGATIVE Erythrocyte Sedimentation Rate 2 0-20 mm/hr Sodium Level 143 136-145 mmol/L Potassium Level 3.5 3.5-5.1 mmol/L Chloride Level 109 H 98-107 mmol/L Carbon Dioxide Level 26 20-31 mmol/L Anion Gap 8 5-15 Blood Urea Nitrogen 17 9-23 mg/dL Creatinine 0.96 0.700-1.30 mg/dL Glomerular Filtration Rate Calc 99 >90 mL/min BUN/Creatinine Ratio 17.7 10.0-20.0 Serum Glucose 109 H 74-106 mg/dL Hemoglobin A1c 5.4 <5.7 % A1C Calcium Level 9.0 8.7-10.4 mg/dL Magnesium Level 1.9 1.6-2.6 mg/dL Troponin I High Sensitivity 77 *H </=54 ng/L C-Reactive Protein High Sensitivity 0.27 <1.0 mg/dL Triglycerides Level 311 H < 150 mg/dL Cholesterol Level 161 < 200 mg/dL LDL Cholesterol 104 H < 100 mg/dL HDL Cholesterol 37 L 40-59 mg/dL Thyroid Stimulating Hormone (TSH) 0.78 0.55-4.78 uIU/mL White Blood Count 10.6 4.4-10.8 10^3/uL Red Blood Count 4.79 4.5-5.90 10^6/uL Hemoglobin 15.5 13.5-17.5 g/dL Hematocrit 43.2 41.0-53.0 % Mean Corpuscular Volume 90.2 80.0-100.0 fL Mean Corpuscular Hemoglobin 32.5 H 28.0-32.0 pg Mean Corpuscular Hemoglobin Concent 36.0 32.0-36.0 g/dL Red Cell Distribution Width 13.1 11.8-14.3 % Platelet Count 222 140-450 10^3/uL Mean Platelet Volume 6.8 L 6.9-10.8 fL Neutrophils (%) (Auto) 85.1 H 37.0-80.0 % Lymphocytes (%) (Auto) 8.8 L 10.0-50.0 % Monocytes (%) (Auto) 5.5 0.0-12.0 % Eosinophils (%) (Auto) 0.2 0.0-7.0 % Basophils (%) (Auto) 0.4 0.0-2.0 % Neutrophils # (Auto) 9.0 H 1.6-8.6 10 ^3/uL Lymphocytes # (Auto) 0.9 0.4-5.4 10 ^3/uL Monocytes # (Auto) 0.6 0-1.3 10 ^3/uL Eosinophils # (Auto) 0 0-0.8 10 ^3/uL Basophils # (Auto) 0 0-0.2 10 ^3/uL Nucleated Red Blood Cells 0.0 % D-Dimer, Quantitative < 0.19 0.0-0.49 mg/L FEU B-Type Natriuretic Peptide 17.71 0-100 pg/mL Assessment Non-cardiac chest pain, pleuritic in nature. Rule out structural heart disease. NSTEMI, likely type II. Dyslipidemia. Anxiety. Depression. Cannabinoid use. Plan/Recommendation I agree with your ongoing assessment and care of plan. Patient has been seen by Sue Mejias NP on my behalf. We have discussed the plan with the patient. The patient presents with noncardiac chest pain likely pleuritic in nature in combination to anxiety. We will continue further cardiac evaluation with a transthoracic echocardiogram to rule out structural heart disease. In the meantime, obtain an UDS and initiate high-intensity statin. He was counseled on diet, exercise, and weight loss for lipid management. In the setting of an unremarkable echocardiogram, there is no further cardiac workup indicated at this time. Additional plan as per the hospital course. Plan discussed with: Patient NYHA Physical activity limitations: NA Date of Service: Nov 06, 2024 Billing Provider: ALVIN GAY MD Cardiology Common Codes: [id number] INP/OBS CARE (High) Cardiology Consultation Codes: [id number] CONSULT <45MIN ALVIN GAY MD Nov 06, 2024 22:58
[2024-11-06] MEDS: MELATONIN 5 MG TAB PO ONE (23:45)
[2024-11-07] VITALS (7 sets, daily range): BP systolic 104–132; BP diastolic 68–95; PULSE 49–75; RESP 16–20; TEMP 97.2–98; O2SAT 98–100
[2024-11-07 11:30] LABS: Hepatitis B Surface Antigen Negative (Negative); Hepatitis C Antibody Negative (Negative)
--- NOTE | 2024-11-07 15:41 | DVHPN2 ---
Subjective Patient continues to have sharp chest pain with deep inspiration Reviewed: Care Plan, H&P, Labs, Medications Changes from previous H/P or p: No Changes General: Per HPI Objective Vitals Vital Signs Date Time Temp Pulse Resp B/P (MAP) Pulse Ox O2 Delivery O2 Flow Rate FiO2 11/07/24 13:00 97.2 66 18 132/69 (90) 99 97.2 11/07/24 08:00 Room Air* 0 21 Intake/Output Intake and Output 11/07/24 07:00 Intake Total 400 ml Balance 400 ml Intake Oral 400 ml # Voids 1 General Appearance: Alert, Oriented X3, Cooperative, No acute distress HEENT: Atraumatic, PERRLA Lungs: Clear to auscultation, Normal air movement Cardiovascular: Normal S1, Normal S2 Abdomen: Normal bowel sounds, Soft, No tenderness, No hepatospenomegaly, No masses Musculoskeletal: Normal sensory function, Normal motor function Extremities: No clubbing, No cyanosis Neuro: Normal gait, Normal speech Skin: Dry, Intact Psych/Mental Status: Mental status NL, Mood NL Medications Current Medications Medications Dose Ordered Sig/Rashawn Route Start Time Stop Time Status Last Admin Dose Admin Nitroglycerin 0.4 mg Q5MINP PRN SL 11/05/24 20:00 Morphine Sulfate 2 mg Q30M PRN IV 11/05/24 20:00 11/06/24 01:54 2 MG Aspirin 162 mg DAILY PO 11/06/24 10:00 11/07/24 09:37 162 MG Ondansetron HCl 4 mg Q4HP PRN IV 11/05/24 21:30 Acetaminophen 650 mg Q6HP PRN PO 11/05/24 21:30 11/07/24 09:46 650 MG Atorvastatin Calcium 40 mg HS PO 11/06/24 22:00 11/06/24 23:31 40 MG Laboratory Results Laboratory Tests 11/05/24 17:45 11/06/24 06:38 Urinalysis Test 11/06/24 13:28 Urine Color Colorless (Yellow) Urine Clarity Clear (Clear) Urine pH 7.5 (5.0-9.0) Urine Specific [place] 1.009 (1.001-1.035) Urine Protein Negative (Negative) Urine Ketones Negative (Negative) Urine Blood Negative /uL (Negative) Urine Nitrite Negative (Negative) Urine Bilirubin Negative (Negative) Urine Urobilinogen Normal mg/dL (Negative) Urine Leukocyte Esterase Negative /uL (Negative) Urine RBC 1 /hpf (0 - 3) Urine Microscopic WBC < 1 /HPF (0-3) Urine Squamous Epithelial Cells None seen /hpf (<5) Urine Bacteria None seen /hpf (None Seen) Urine Glucose Normal mg/dL (Normal) Microbiology Microbiology Date/Time Source Procedure Growth Status 11/06/24 23:42 Nose MRSA Screen - Final Complete Assessment/Plan Assessment/Plan Impression: -elevated troponin, rule out ACS -nicotine dependence -anxiety -nonobstructive nephrolithiasis Plan: Events: Echocardiogram results continue to be pending. Discussed case with primary nurse, for which apparently patient we will be transferred to the [facility] tomorrow. Arrange by social workers. -echocardiogram pending -reassess for discharge in a.m. after receiving echo results. Discussed this with Cardiology. Total time spent with patient discussing and formulating plan of care: 35 minutes. This medical document was created using an electronic medical record system with [employer] dictation system. Although this document has been carefully reviewed, there may still be some phonetic and typographical errors. These areas are purely typographical due to imperfections of the software programs, and do not reflect any compromise in the patient's medical care. Plan discussed with: Patient, Other (RN) My Orders Orders - ROHAN MELARA NP Procedure Category Date Status Time * Cardroom Manager CONS 11/06/24 Transmitted Consult Melatonin (Melatonin) PHA 11/07/24 Verified 22:00 Date of Service: Nov 07, 2024 Billing Provider: ROHAN MELARA NP Common Visit Codes: [id number] INP/OBS CARE(HIGH) ROHAN MELARA NP Nov 07, 2024 15:41
--- NOTE | 2024-11-07 22:53 | DVHPN2 ---
Progress Note - Dictate Date Seen: Nov 07, 2024 Medical Necessity Reason Pt with a Central, PICC or Fol: No Subjective Patient was seen and evaluated in follow up. Patient is complaining of sharp chest pain with deep inspiration. Echocardiogram is ordered/pending. Telemetry reviewed. vital signs Vital Sign Date Time Temp Pulse Resp B/P (MAP) Pulse Ox O2 Delivery O2 Flow Rate FiO2 11/07/24 16:44 97.6 53 17 128/95 (106) 100 97.6 11/07/24 08:00 Room Air* 0 21 Total Intake and Output 11/06/24 11/06/24 11/07/24 15:00 23:00 07:00 Intake Total 400 ml Balance 400 ml medications Current Medications Medications Dose Ordered Sig/Rashawn Route Start Time Stop Time Status Last Admin Dose Admin Nitroglycerin 0.4 mg Q5MINP PRN SL 11/05/24 20:00 Morphine Sulfate 2 mg Q30M PRN IV 11/05/24 20:00 11/06/24 01:54 2 MG Aspirin 162 mg DAILY PO 11/06/24 10:00 11/07/24 09:37 162 MG Ondansetron HCl 4 mg Q4HP PRN IV 11/05/24 21:30 Acetaminophen 650 mg Q6HP PRN PO 11/05/24 21:30 11/07/24 09:46 650 MG Atorvastatin Calcium 40 mg HS PO 11/06/24 22:00 11/06/24 23:31 40 MG objective GENERAL: Alert and oriented x 3. No acute distress. EYES: PERRL, EOMI. Anicteric. HENT: Moist mucous membranes. LUNGS: Clear to auscultation bilaterally. CARDIOVASCULAR: Regular rate and rhythm. ABDOMEN: Soft, non-tender and non-distended. EXTREMITIES: No edema. NEUROLOGIC: No focal neurological deficits. SKIN: Warm, dry. laboratory and microbiology Laboratory Tests 11/06/24 06:38 11/05/24 17:45 Test 11/06/24 06:38 Range/Units Serum Glucose 109 H 74-106 mg/dL Problem List Non-cardiac chest pain, pleuritic in nature. Rule out structural heart disease. NSTEMI, likely type II. Dyslipidemia. Anxiety. Depression. Cannabinoid use. Assessment/Plan Continued all current supportive medical care. Echocardiogram. Aspirin, Lipitor. Morphine for pain management. Nitro SL. Additional plan as per the hospital course. Plan discussed with: Patient ALVIN GAY MD Nov 07, 2024 20:06
[2024-11-08] MEDS: MELATONIN 5 MG TAB PO ONE (00:52)
[2024-11-08 01:00] VITALS: BP 123/60; PULSE 63; RESP 20; TEMP 97.9; O2SAT 94
[2024-11-08 05:00] VITALS: BP 109/61; PULSE 54; RESP 20; TEMP 98.2; O2SAT 97
[2024-11-08 08:00] VITALS: PULSE 52; PULSE 56; RESP 17; O2SAT 97
[2024-11-08 09:24] VITALS: BP 110/71; PULSE 56; RESP 17; TEMP 97.6; O2SAT 97
--- NOTE | 2024-11-08 11:33 | DVHDS2 ---
Discharge Summary Date of Admission Nov 05, 2024 at 19:53 Date of Discharge: Nov 08, 2024 Admitting Diagnosis Chest pain Labs/Diagnostic Data: Laboratory Results Test 11/06/24 13:28 11/06/24 06:38 11/05/24 19:18 11/05/24 17:45 Urine Color Colorless (Yellow) Urine Clarity Clear (Clear) Urine pH 7.5 (5.0-9.0) Urine Specific [place] 1.009 (1.001-1.035) Urine Protein Negative (Negative) Urine Ketones Negative (Negative) Urine Blood Negative /uL (Negative) Urine Nitrite Negative (Negative) Urine Bilirubin Negative (Negative) Urine Urobilinogen Normal mg/dL (Negative) Urine Leukocyte Esterase Negative /uL (Negative) Urine RBC 1 /hpf (0 - 3) Urine Microscopic WBC < 1 /HPF (0-3) Urine Squamous Epithelial Cells None seen /hpf (<5) Urine Bacteria None seen /hpf (None Seen) Urine Glucose Normal mg/dL (Normal) Urine Opiates Screen Neg (NEGATIVE) Urine Fentanyl Screen Neg (NEGATIVE) Urine Barbiturates Screen Neg (NEGATIVE) Urine Phencyclidine Screen Neg (NEGATIVE) Urine Amphetamines Screen Neg (NEGATIVE) Urine Benzodiazepines Screen Neg (NEGATIVE) Urine Cocaine Screen Neg (NEGATIVE) Urine Cannabinoids Screen Neg (NEGATIVE) Erythrocyte Sedimentation Rate 2 mm/hr (0-20) Sodium Level 143 mmol/L (136-145) Potassium Level 3.5 mmol/L (3.5-5.1) Chloride Level 109 mmol/L (98-107) Carbon Dioxide Level 26 mmol/L (20-31) Anion Gap 8 (5-15) Blood Urea Nitrogen 17 mg/dL (9-23) Creatinine 0.96 mg/dL (0.700-1.30) Glomerular Filtration Rate Calc 99 mL/min (>90) BUN/Creatinine Ratio 17.7 (10.0-20.0) Serum Glucose 109 mg/dL (74-106) Hemoglobin A1c 5.4 % A1C (<5.7) Calcium Level 9.0 mg/dL (8.7-10.4) Magnesium Level 1.9 mg/dL (1.6-2.6) Troponin I High Sensitivity 77 ng/L (</=54) C-Reactive Protein High Sensitivity 0.27 mg/dL (<1.0) Hepatitis B Surface Antigen Negative (Negative) Hepatitis C Antibody Negative (Negative) Triglycerides Level 311 mg/dL (< 150) Cholesterol Level 161 mg/dL (< 200) LDL Cholesterol 104 mg/dL (< 100) HDL Cholesterol 37 mg/dL (40-59) Thyroid Stimulating Hormone (TSH) 0.78 uIU/mL (0.55-4.78) White Blood Count 10.6 10^3/uL (4.4-10.8) Red Blood Count 4.79 10^6/uL (4.5-5.90) Hemoglobin 15.5 g/dL (13.5-17.5) Hematocrit 43.2 % (41.0-53.0) Mean Corpuscular Volume 90.2 fL (80.0-100.0) Mean Corpuscular Hemoglobin 32.5 pg (28.0-32.0) Mean Corpuscular Hemoglobin Concent 36.0 g/dL (32.0-36.0) Red Cell Distribution Width 13.1 % (11.8-14.3) Platelet Count 222 10^3/uL (140-450) Mean Platelet Volume 6.8 fL (6.9-10.8) Neutrophils (%) (Auto) 85.1 % (37.0-80.0) Lymphocytes (%) (Auto) 8.8 % (10.0-50.0) Monocytes (%) (Auto) 5.5 % (0.0-12.0) Eosinophils (%) (Auto) 0.2 % (0.0-7.0) Basophils (%) (Auto) 0.4 % (0.0-2.0) Neutrophils # (Auto) 9.0 10 ^3/uL (1.6-8.6) Lymphocytes # (Auto) 0.9 10 ^3/uL (0.4-5.4) Monocytes # (Auto) 0.6 10 ^3/uL (0-1.3) Eosinophils # (Auto) 0 10 ^3/uL (0-0.8) Basophils # (Auto) 0 10 ^3/uL (0-0.2) Nucleated Red Blood Cells 0.0 % D-Dimer, Quantitative < 0.19 mg/L FEU (0.0-0.49) B-Type Natriuretic Peptide 17.71 pg/mL (0-100) Other Laboratory Tests 11/06/24 06:38 11/05/24 17:45 Brief Hx & Hospital Course: History of Present Illness 44-year-old male presents for evaluation of chest pain. Patient reports a three day history of intermittent substernal sharp chest pain that radiates to his left arm with associated dizziness. Currently denies any pain. No shortness a breath. Course of hospitalization: Patient was seen by Cardiology, found to have negative troponin, EKG as well as normal echocardiogram. Patient's symptoms improved. [facility] No prescriptions will be provided. Physical examination General: Alert and Oriented x3. No acute distress. Well-nourished. Eyes: EOMI. Anicteric. HENT: Moist mucous membranes. Lungs: Clear to auscultation bilaterally. No accessory muscle use. Cardiovascular: Regular rate and rhythm. No murmur. No JVD. Abdomen: Soft, non-tender and non-distended. No palpable masses. Extremities: No edema. Non-tender. Skin: No rashes or lesions. Warm. Neurologic: No focal neurological deficits. CN II-XII grossly intact, but not individually tested. Psychiatric: Cooperative. Appropriate mood and affect. Total time spent with patient discussing and formulating plan of care: 35 minutes. This medical document was created using an electronic medical record system with [employer] dictation system. Although this document has been carefully reviewed, there may still be some phonetic and typographical errors. These areas are purely typographical due to imperfections of the software programs, and do not reflect any compromise in the patient's medical care. Condition at Discharge: Fair Final Diagnosis/Problems List Chest pain secondary to pleuritic pain Ruled out ACS -nicotine dependence -anxiety -nonobstructive nephrolithiasis Discharge Disposition: Home Discharge Instruct/Medications Diet: Regular Activity: No Restrictions, As Tolerated Follow Up/Referral: PCP in 1-2 weeks Medications: no new prescriptions 36 Discharge Statement: "Patient was advised to return to the ER or call 911 if any headaches, dizziness, shortness of breath, chest pain, abdominal pain, bleeding, fevers, or worsening of medical condition. Patient was counseled about treatment plan, medications, possible side effects, patientverbalized understanding. All questions were answered to the best of my ability. This discharge took greater then 30 minutes in planning, reviewing documentation, counseling the patient, and discussing with other team members." ASSESSMENT ASSESSMENT Assessment Chest pain secondary to pleuritic pain Date of Service: Nov 08, 2024 Billing Provider: ROHAN MELARA NP Common Visit Codes: [id number] CARE 30-74 MIN ROHAN MELARA NP Nov 08, 2024 11:33
[2024-11-08 12:00] VITALS: BP 110/71; PULSE 60; RESP 18; TEMP 98.6; O2SAT 97
[2024-11-08 13:02] VITALS: BP 131/77; PULSE 50; RESP 17; TEMP 97; O2SAT 98
--- NOTE | 2024-11-08 23:40 | DVHPN2 ---
Progress Note - Dictate Date Seen: Nov 08, 2024 Medical Necessity Reason Pt with a Central, PICC or Fol: No Subjective Patient was seen and evaluated in follow up. Patient has no new complaints at this time. Patient denies any cardiac symptoms. Patient is cardiac stable for discharge. Telemetry reviewed. vital signs Vital Sign Date Time Temp Pulse Resp B/P (MAP) Pulse Ox O2 Delivery O2 Flow Rate FiO2 11/08/24 13:02 97.0 50 17 131/77 (95) 98 97.0 11/08/24 08:00 Room Air* 0 21 Total Intake and Output 11/07/24 11/07/24 11/08/24 15:00 23:00 07:00 Intake Total 400 ml 500 ml Balance 400 ml 500 ml medications Current Medications Medications Dose Ordered Sig/Rashawn Route Start Time Stop Time Status Last Admin Dose Admin Nitroglycerin 0.4 mg Q5MINP PRN SL 11/05/24 20:00 Morphine Sulfate 2 mg Q30M PRN IV 11/05/24 20:00 11/06/24 01:54 2 MG Aspirin 162 mg DAILY PO 11/06/24 10:00 11/08/24 09:29 162 MG Ondansetron HCl 4 mg Q4HP PRN IV 11/05/24 21:30 Acetaminophen 650 mg Q6HP PRN PO 11/05/24 21:30 11/07/24 09:46 650 MG Atorvastatin Calcium 40 mg HS PO 11/06/24 22:00 11/08/24 00:49 40 MG objective GENERAL: Alert and oriented x 3. No acute distress. EYES: PERRL, EOMI. Anicteric. HENT: Moist mucous membranes. LUNGS: Clear to auscultation bilaterally. CARDIOVASCULAR: Regular rate and rhythm. ABDOMEN: Soft, non-tender and non-distended. EXTREMITIES: No edema. NEUROLOGIC: No focal neurological deficits. SKIN: Warm, dry. laboratory and microbiology Laboratory Tests 11/06/24 06:38 11/05/24 17:45 Test 11/06/24 06:38 Range/Units Serum Glucose 109 H 74-106 mg/dL Problem List Non-cardiac chest pain, pleuritic in nature. Rule out structural heart disease. NSTEMI, likely type II. Dyslipidemia. Anxiety. Depression. Cannabinoid use. Assessment/Plan Continued all current supportive medical care. Aspirin, Lipitor. Nitro SL. Additional plan as per the hospital course. Plan discussed with: Patient ALVIN GAY MD Nov 08, 2024 13:26
--- NOTE | 2024-11-09 12:02 | DVHSR ---
APPROVED REPORT EXAM: Two-dimensional and M-mode echocardiogram with Doppler and color Doppler. Blood Pressure: 104/68 mmHg INDICATION Chest Pain RISK FACTORS Height: 68, Weight: 225 DIMENSIONS LVDd4.8 (3.8-5.7cm)LA (2D)3.7 (1.9-4.0cm)Aortic Root3.6 (2.0-3.7cm) LVDs2.9 (2.5-4.0cm)LA (MM) (1.9-4.0cm)Aortic Cusp Exc2.2 (1.5-2.0cm) EF (%) 70.0 (55-70%)Rt. Atrium5.3 (1.9-4.0cm)Asc. Aorta cm Mitral Valve MitralMitral Stenosis E wave0.79m/sMV Mean GR.mmHg A wave0.52m/sMV Peak GR.47mmHg E/A ratio1.52D MVAcm2 DECEL [id number] 1/2 [id number] IVRTmsDop MVA3.76cm2 Aortic Valve Aortic ValveAortic Stenosis V11.16m/Power Mean GR.3mmHg V21.17m/Power Peak GR.5mmHg LVOT Diameter2.1 (1.8-2.4cm)Doppler AVA3.43cm2 Pulmonic Valve V21.02m/s Tricuspid Valve TR Velocity2.36m/s [id number] Conclusion NORMAL LV EF AND IS 70% NORMAL VALVES NORMAL RV FUNCTION NO EFFUSION
== END 2024-11-08 13:30 | disposition home or self-care (01) | DRG 203 ==
LOC: EDBD 16:46 → EDUNIT# 16:46 → ER 16:46 → OVERFLOW 19:53 → TELE-WESTW 11-06 19:14
PROVIDERS: ADMIT Nurse Practitioner Acute Care; ATTEND Nurse Practitioner Acute Care
DX: M94.0 Chondrocostal junction syndrome [Tietze] (principal); I21.A1 Myocardial infarction type 2; E78.5 Hyperlipidemia, unspecified; F17.200 Nicotine dependence, unspecified, uncomplicated; R07.81 Pleurodynia; F32.A Depression, unspecified; F41.9 Anxiety disorder, unspecified; G47.00 Insomnia, unspecified; N20.0 Calculus of kidney; Z79.899 Other long term (current) drug therapy
CPT/HCPCS: 36415; 71045; 76775; 80048; 80061; 80307; 81001; 83036; 83735; 83880; 84443; 84484; 85025; 85379; 85652; 86141; 86803; 87081; 87340; 93005; 93306; 96372; G0378; J1885